=== PATIENT | male | born 1960 | race Two or more races ===

== ENCOUNTER 2021-03-13 13:57 | Emergency (ER) | payer MEDICAID ==
[~2021-03-13] VITALS: Ht 170.2 cm; Wt 78.5 kg
--- NOTE | 2021-03-13 14:11 | NUR ---
Dr Hudson at bedside for MSE.
--- NOTE | 2021-03-13 14:30 | NUR ---
Pt placed on cervical collar.
[2021-03-13] MEDS ORDERED: METF-440 PO (14:36)
[2021-03-13] MEDS ORDERED: NEOMY/BACITRA/POLYMYXIN B OINT UD PACKET TP ONE ×2 (14:45→16:05)
[2021-03-13] MEDS ORDERED: HYDROCODONE/APAP 5-325MG TABLET PO ONE (15:45)
--- NOTE | 2021-03-13 15:50 | NUR ---
Cervical collar removed after clean CT results.
[2021-03-13] MEDS ORDERED: HYDR-4209 PO (15:53)
[2021-03-13] MEDS ORDERED: HYDROCODONE/APAP 5-325MG TABLET ONE (16:05)
--- NOTE | 2021-03-13 16:25 | NUR ---
Patient discharged to home in stable condition. Written and verbal after care instructions given to both patient and daughter Diana [phone]. EMphasized importance of following instructions for [place] and follow up with PCP. Stressed follow up or return to ER for worsening s/s. Pt was picked up by daughter and family members. Ambulated out of ED in steady gait.
[2021-03-13 16:27] VITALS: BP 155/73
== END 2021-03-13 16:29 | disposition home or self-care (01) ==
LOC: ER 13:59
DX: S13.4XXA Sprain of ligaments of cervical spine, initial encounter (principal); V49.40XA Driver injured in collision with unspecified motor vehicles in traffic accident, initial encounter; Y92.410 Unspecified street and highway as the place of occurrence of the external cause; R51.9 Headache, unspecified; E11.9 Type 2 diabetes mellitus without complications; R03.0 Elevated blood-pressure reading, without diagnosis of hypertension; Z79.84 Long term (current) use of oral hypoglycemic drugs
CPT/HCPCS: 70450; 72125; A4663